=== PATIENT | male | born 1955 | race Asian ===

== ENCOUNTER 2021-06-26 20:03 | Emergency (ER) | payer OTHER ==
[~2021-06-26] VITALS: Ht 170.2 cm; Wt 65.8 kg
--- NOTE | 2021-06-26 20:45 | NUR ---
BIBA C/O LOST OF SENSATION ON TOP OF LT FOOT S/P LEFT LEG FRACTURE 3 DAYS AGO
--- NOTE | 2021-06-26 22:45 | NUR ---
DISCHARGE INSTRUCTIONS GIVEN TO PT.
--- NOTE | 2021-06-26 23:07 | NUR ---
PT WILL BE PICKED UP BY THE SON
--- NOTE | 2021-06-26 23:53 | NUR ---
SON IN WAITING ROOM DISCHARGE PAPERS GIVEN TO PT.
[2021-06-26 23:58] VITALS: BP 144/89
== END 2021-06-26 23:59 | disposition home or self-care (01) ==
LOC: ER 20:09
DX: M79.605 Pain in left leg (principal); I10 Essential (primary) hypertension; W11.XXXA Fall on and from ladder, initial encounter; Y93.89 Activity, other specified; Y92.89 Other specified places as the place of occurrence of the external cause; Y99.8 Other external cause status